=== PATIENT | male | born 1995 | race African-American/Black ===

== ENCOUNTER 2021-12-02 05:42 | Emergency (ER) | payer SELFPAY ==
[~2021-12-02] VITALS: Ht 172.7 cm; Wt 92.0 kg
[2021-12-02] MEDS ORDERED: IV NORMAL SALINE 1000ML BAG 1,000 ML IV ONE (07:30)
[2021-12-02] MEDS ORDERED: HYDROcodone/APAP 5/325MG 1 TAB TABLET PO ONE (07:45)
[2021-12-02] MEDS ORDERED: KETOROLAC 30 MG/ML VIAL. IVP ONE (07:45)
[2021-12-02] MEDS ORDERED: ONDANSETRON PF 4 MG/2 ML VIAL. IVP ONE (07:45)
[2021-12-02] MEDS ORDERED: KETOROLAC 15 MG/ML VIAL. IVP ONE (07:45)
[2021-12-02 08:02] LABS: BASO % 0 % (0-3); EOS # 0.1 x10^3/uL (0.0-0.7); EOS % 1 % (0-3); HEMATOCRIT 44.6 % (39.0-53.0); HEMOGLOBIN 14.8 g/dL (13.0-17.5); LYMPH # 0.5 x10^3/uL (1.0-4.8); LYMPH % 6 % (24-48); MEAN CORPUSCULAR HEMOGLOBIN 29 pg (25-35); MEAN CORPUSCULAR HGB CONC 33 g/dL (31-37); MEAN CORPUSCULAR VOLUME 86 fL (79-100); MONO # 0.9 x10^3/uL (0.0-1.1); MONO % 11 % (0-9); NEUT # 7.4 x10^3/uL (1.8-7.7); NEUT % 82 % (31-73); PLATELET COUNT 240 x10^3/uL (140-400); RED BLOOD COUNT 5.17 x10^6/uL (4.30-5.70); RED CELL DISTRIBUTION WIDTH 14.2 % (11.5-14.5)
[2021-12-02 08:27] LABS: CALCIUM 8.8 mg/dL (8.5-10.1); GFR 109.3; POTASSIUM 4.4 mmol/L (3.5-5.1)
[2021-12-02 08:32] LABS: ALBUMIN 3.8 g/dL (3.4-5.0); ALBUMIN/GLOBULIN RATIO 0.9 (1.0-1.7); INFLUENZA A PATIENT NEGATIVE (NEGATIVE); INFLUENZA B PATIENT NEGATIVE (NEGATIVE); TOTAL BILIRUBIN 0.3 mg/dL (0.2-1.0); TOTAL PROTEIN 7.9 g/dL (6.4-8.2)
[2021-12-02 09:45] VITALS: BP 122/70
[2021-12-02] MEDS ORDERED: ONDA4TAB12 PO (09:59)
--- NOTE | 2021-12-02 10:00 | PHYS DOC ---
Past Medical History Past Surgical History: No Surgical History Adult General Chief Complaint Chief Complaint: FLU SYMPTOM HPI HPI Patient is a 26 year old male present emergency department for evaluation of multiple complaints including headache fevers chills arthralgias myalgias gen eralized malaise and fatigue and not feeling well for the past 2 days. He states that the headache is diffuse and pounding but does not cause him any neck pain stiffness or rigidity and no photophobia unilateral weakness numbness or tingling. He says that the fever has been unmeasured. He says that he has no medical problems and takes no medications on a regular basis. He is in no acute distress with normal vital signs. Review of Systems Review of Systems Constitutional: + fever, chills [] Eyes: Denies change in visual acuity, redness, or eye pain [] HENT: Denies nasal congestion or sore throat [] Respiratory: Denies cough or shortness of breath [] Cardiovascular: No additional information not addressed in HPI [] GI: Denies abdominal pain, nausea, vomiting, bloody stools or diarrhea [] : Denies dysuria or hematuria [] Musculoskeletal: Positive arthralgias and myalgias Integument: Denies rash or skin lesions [] Neurologic: + headache. No focal weakness or sensory changes [] Endocrine: Denies polyuria or polydipsia [] All other systems were reviewed and found to be within normal limits, except as documented in this note. Current Medications Current Medications Current Medications Medications (Trade) Dose Ordered Sig/Caridad Start Time Stop Time Status Last Admin Dose Admin Acetaminophen/ Hydrocodone Bitart (Lortab 5/325) 2 tab 1X ONCE 12/02/21 07:45 12/02/21 07:46 DC 12/02/21 07:45 2 TAB Ketorolac Tromethamine (Toradol 15mg Vial) 15 mg 1X ONCE 12/02/21 07:45 12/02/21 07:46 Cancel Ketorolac Tromethamine (Toradol 30mg Vial) 15 mg 1X ONCE 12/02/21 07:45 12/02/21 07:46 DC 12/02/21 07:45 15 MG Ondansetron HCl (Zofran) 4 mg 1X ONCE 12/02/21 07:45 12/02/21 07:46 DC 12/02/21 07:45 4 MG Sodium Chloride 1,000 ml @ 1,000 mls/hr 1X ONCE 12/02/21 07:30 12/02/21 08:29 DC 12/02/21 07:30 1,000 MLS/HR Allergies Allergies Allergies Coded Allergies Type Severity Reaction Last Updated Verified No Known Drug Allergies 12/02/21 No Physical Exam Physical Exam Constitutional: Well developed, well nourished, no acute distress, non-toxic appearance. [] HENT: Normocephalic, atraumatic, bilateral external ears normal, oropharynx moist, no oral exudates, nose normal. [] Eyes: PERRLA, EOMI, conjunctiva normal, no discharge. [] Neck: Normal range of motion, no tenderness, supple, no stridor. [] Cardiovascular:Heart rate regular rhythm, no murmur [] Lungs & Thorax: Bilateral breath sounds clear to auscultation [] Abdomen: Bowel sounds normal, soft, no tenderness, no masses, no pulsatile masses. [] Skin: Warm, dry, no erythema, no rash. [] Back: No tenderness, no CVA tenderness. [] Extremities: No tenderness, no cyanosis, no clubbing, ROM intact, no edema. [] Neurologic: Alert and oriented X 3, normal motor function, normal sensory function, no focal deficits noted. No neck stiffness or rigidity and a negative Kernig's and Brudzinski sign. Psychologic: Affect normal, judgement normal, mood normal. [] Current Patient Data Vital Signs Vital Signs Date Time Temp Pulse Resp B/P (MAP) Pulse Ox O2 Delivery O2 Flow Rate FiO2 12/02/21 09:45 90 16 122/70 (87) 98 Room Air 12/02/21 07:11 98.4 98.4 Lab Values Laboratory Tests Test 12/02/21 07:49 White Blood Count 9.0 x10^3/uL (4.0-11.0) Red Blood Count 5.17 x10^6/uL (4.30-5.70) Hemoglobin 14.8 g/dL (13.0-17.5) Hematocrit 44.6 % (39.0-53.0) Mean Corpuscular Volume 86 fL (79-100) Mean Corpuscular Hemoglobin 29 pg (25-35) Mean Corpuscular Hemoglobin Concent 33 g/dL (31-37) Red Cell Distribution Width 14.2 % (11.5-14.5) Platelet Count 240 x10^3/uL (140-400) Neutrophils (%) (Auto) 82 % (31-73) H Lymphocytes (%) (Auto) 6 % (24-48) L Monocytes (%) (Auto) 11 % (0-9) H Eosinophils (%) (Auto) 1 % (0-3) Basophils (%) (Auto) 0 % (0-3) Neutrophils # (Auto) 7.4 x10^3/uL (1.8-7.7) Lymphocytes # (Auto) 0.5 x10^3/uL (1.0-4.8) L Monocytes # (Auto) 0.9 x10^3/uL (0.0-1.1) Eosinophils # (Auto) 0.1 x10^3/uL (0.0-0.7) Basophils # (Auto) 0.0 x10^3/uL (0.0-0.2) Sodium Level 139 mmol/L (136-145) Potassium Level 4.4 mmol/L (3.5-5.1) Chloride Level 102 mmol/L (98-107) Carbon Dioxide Level 27 mmol/L (21-32) Anion Gap 10 (6-14) Blood Urea Nitrogen 10 mg/dL (8-26) Creatinine 1.0 mg/dL (0.7-1.3) Estimated GFR (Cockcroft-Gault) 109.3 BUN/Creatinine Ratio 10 (6-20) Glucose Level 92 mg/dL (70-99) Calcium Level 8.8 mg/dL (8.5-10.1) Total Bilirubin 0.3 mg/dL (0.2-1.0) Aspartate Amino Transferase (AST) 25 U/L (15-37) Alanine Aminotransferase (ALT) 62 U/L (16-63) Alkaline Phosphatase 107 U/L (46-116) Total Protein 7.9 g/dL (6.4-8.2) Albumin 3.8 g/dL (3.4-5.0) Albumin/Globulin Ratio 0.9 (1.0-1.7) L Influenza Type A Antigen Negative (NEGATIVE) Influenza Type B Antigen Negative (NEGATIVE) SARS-CoV-2 Antigen (Rapid) Negative (NEGATIVE) Laboratory Tests 12/02/21 07:49 Laboratory Tests 12/02/21 07:49 EKG EKG [] Radiology/Procedures Radiology/Procedures [] Course & Med Decision Making Course & Med Decision Making Patient has negative work-up with normal labs normal swabs and he feels better after treatment the emergency department. I suspect that he does have a viral syndrome and recommended Tylenol and ibuprofen at home and I will prescribe him several medications for nausea told to follow-up with primary care provider within 2 to 3 days for recheck and come back to emergency department sooner with worsening pain neurologic changes or other general concerns patient aware and agreeable with plan and verbalized understanding of above instructions.. Dragon Disclaimer Dragon Disclaimer This electronic medical record was generated, in whole or in part, using a voice recognition dictation system. Departure Departure Impression: Primary Impression: Acute viral syndrome Disposition: HOME / SELF CARE / HOMELESS Condition: STABLE Referrals: NO PCP (PCP) Patient Instructions: Viral Syndrome Additional Instructions: Drink plenty of fluids and take 600 mg of ibuprofen every 6 hours for pain and fever and alternate with 650 mg of Tylenol every 6 hours for pain and fever. Follow with primary care provider soon as possible and come back with worsening pain fevers or other concerns. Scripts Ondansetron (ONDANSETRON ODT) 4 Mg Tab.rapdis 4 MG PO TID PRN for NAUSEA/VOMITING for 3 Days, #9 TAB Prov: RAMIRO VAERLA DO 12/02/21 RAMIRO VARELA DO Dec 02, 2021 10:00
--- NOTE | 2021-12-03 09:39 | NUR ---
Attempted to reach patient regarding covid results. Voicemail was left to return call.
== END 2021-12-02 10:16 | disposition home or self-care (01) ==
LOC: ER 05:42
DX: B34.9 Viral infection, unspecified (principal); Z20.822 Contact with and (suspected) exposure to COVID-19
CPT/HCPCS: 36415; 80053; 85025; 87428; 96361; 96374; 96375; 99284; J1885; J2405; J7030; U0003; U0005

== ENCOUNTER 2021-12-03 15:32 | Emergency (ER) | payer SELFPAY ==
[~2021-12-03] VITALS: Ht 170.2 cm; Wt 94.1 kg
[~2021-12-03 15:32] MED LIST: ONDA4TAB12 PO
[2021-12-03 16:14] VITALS: BP 139/90
[2021-12-03] MEDS ORDERED: FAMOTIDINE 20 MG TABLET. PO ONE (17:00)
[2021-12-03] MEDS ORDERED: diphenhydrAMINE HCL 25 MG CAPSULE PO ONE (17:00)
[2021-12-03] MEDS ORDERED: KETOROLAC 60 MG/2 ML VIAL. IM ONE (17:00)
--- NOTE | 2021-12-03 18:26 | PHYS DOC ---
Past Medical History Past Medical History: No Pertinent History Past Surgical History: No Surgical History, Other Smoking Status: Current Every Day Smoker Alcohol Use: None Drug Use: Marijuana General Adult EDM: Chief Complaint: FLU SYMPTOM HPI: HPI: Patient is a 26 year old male who returns to the emergency department after being evaluated last night for multiple complaints. Today he states that he has body aches, abdominal pain and nausea. He states that his symptoms are largely unchanged from those he had yesterday. Patient reports he was given "2 pills yes terday and fluids and an IV, and I felt way better." Patient denies having followed discharge instructions of using Zofran for nausea and alternating between ibuprofen and Tylenol for body aches. He now states that his concern is less about his nausea and more about his "stomach hurting." Review of Systems: Review of Systems: ROS negative or noncontributory except as mentioned in HPI. Heart Score: C/O Chest Pain: No Current Medications: Current Medications Medications (Trade) Dose Ordered Sig/Caridad Start Time Stop Time Status Last Admin Dose Admin Diphenhydramine HCl (Benadryl) 25 mg 1X ONCE 12/03/21 17:00 12/03/21 17:01 DC 12/03/21 17:21 25 MG Famotidine (Pepcid) 20 mg 1X ONCE 12/03/21 17:00 12/03/21 17:01 DC 12/03/21 17:21 20 MG Ketorolac Tromethamine (Toradol Im) 60 mg 1X ONCE 12/03/21 17:00 12/03/21 17:01 DC 12/03/21 17:21 60 MG Allergies: Allergies: Allergies Coded Allergies Type Severity Reaction Last Updated Verified No Known Drug Allergies 12/02/21 No Physical Exam: PE: Constitutional: Well developed, well nourished, no acute distress, non-toxic appearance, exam room smells like marijuana. HENT: Normocephalic, atraumatic, bilateral external ears normal, oropharynx moist, no oral exudates, nose normal. Eyes: EOMI, conjunctiva normal, no discharge. Neck: Normal range of motion, no tenderness, supple, no stridor. Cardiovascular: Heart rate regular rhythm, no murmur. Lungs & Thorax: Bilateral breath sounds clear to auscultation. Abdomen: Bowel sounds normal, soft, no tenderness, no masses, no pulsatile masses. Skin: Warm, dry, no erythema, no rash. Neurologic: Alert and oriented x4, steady and symmetrical gait, no focal deficits noted. Current Patient Data: Vital Signs: Vital Signs Date Time Temp Pulse Resp B/P (MAP) Pulse Ox O2 Delivery O2 Flow Rate FiO2 12/03/21 16:14 98.0 79 18 139/90 (106) 94 Room Air 98.0 Course & Med Decision Making: Course & Med Decision Making Pertinent Labs and Imaging studies reviewed. (See chart for details) Patient is a 26-year-old male who presents with body aches, nausea, abdominal pain. His symptoms are unchanged from his presentation yesterday, per patient. He request the "2 pills" that he was given yesterday. In reviewing his chart from yesterday, it seems as though he was provided with 2 tablets of hydrocod one. At this time, I have no indication to provide the patient with narcotics. I informed the patient that I would repeat his Toradol and provide medication to help with his abdominal pain. Patient requested narcotic medication, hydrocodone, again to nursing staff. Patient was told that the hydrocodone may upset his stomach more. I went to reevaluate the patient after medication administration, but the patient had eloped. Kavin Disclaimer: Kavin Disclaimer: This electronic medical record was generated, in whole or in part, using a voice recognition dictation system. Departure Departure Impression: Primary Impression: Acute viral syndrome Disposition: LEFT AWOL/ELOPED Condition: GUARDED Referrals: NO PCP (PCP) Patient Instructions: Viral Syndrome LEYLA JERNIGAN Dec 03, 2021 18:25
== END 2021-12-03 18:15 | disposition left against medical advice (07) ==
LOC: ER 15:32
DX: B34.9 Viral infection, unspecified (principal); F17.200 Nicotine dependence, unspecified, uncomplicated
CPT/HCPCS: 96372; 99283; J1885; Q0163